=== PATIENT | male | born 1990 | race African-American/Black ===

== ENCOUNTER → 2018-12-31 | Emergency (ER) | payer OTHER ==
[2018-12-31 15:08] VITALS: BP 149/88
--- NOTE | 2018-12-31 15:18 | EDPHY ---
H & P Stated Complaint: locked jaw x 1 hour has history of Time Seen by Provider: 12/31/18 15:17 - Personal History Current Tetanus Diphtheria and Acellular Pertussis (TDAP): Yes - Medical/Surgical History Hx Asthma: No Hx Chronic Respiratory Disease: No Hx Diabetes: No Hx Cardiac Disease: No Hx Renal Disease: No Hx Cirrhosis: No Hx Alcoholism: No Hx HIV/AIDS: No Hx Splenectomy or Spleen Trauma: No Other PMH: TMJ - Social History Smoking Status: Never smoked Constitutional: Initial Vital Signs Temperature (C) 36.7 C 12/31/18 15:04 Heart Rate 73 12/31/18 15:04 Respiratory Rate 16 12/31/18 15:04 Blood Pressure 149/88 H 12/31/18 15:04 O2 Sat (%) 95 12/31/18 15:04 Allergies/Adverse Reactions: No Known Allergies Allergy (Unverified 12/31/18 15:08) Home Medications: Medication Instructions Recorded NK [No Known Home Meds] 12/31/18 Medical Decision Making ED Course/Re-evaluation: CHIEF COMPLAINT: Dislocated jaw HISTORY OF PRESENT ILLNESS: The patient is a 28 y/o male with a history of TMJ and a bilateral dislocated jaw complaining of having a dislocated jaw 1 hour ago. The patient was yawning when he bilaterally dislocated his jaw. In the past he was asked if he wanted dislocation to relocate the jaw, which he declined. No fever, headache, body aches, lightheadedness, chest pain, heart palpitations, shortness of breath, cough, abdominal pain, urinary or bowel complaints, numbness, paresthesias. REVIEW OF SYSTEMS: A comprehensive 10 system review of systems is otherwise negative aside from elements mentioned in the history of present illness and medical decision making. PHYSICAL EXAM: HR, BP, O2 Sat, RR. Temp noted General Appearance: Alert, well hydrated, appropriate, and non-toxic appearing. Head: Atraumatic without scalp tenderness or obvious injury Eyes: Pupils equal, round, reactive to light and accommodation, EOMI, no trauma , no injection. Ears: Clear bilaterally, no perforation, normal landmarks Nose: Atraumatic, no rhinorrhea, clear. Throat: Bilaterally dislocated mandible. There is no erythema or exudates, no lesions, normal tonsils, mucus membranes moist. Neck: Supple, 2+ carotid upstroke, nontender, no lymphadenopathy. Musculoskeletal: Normal active ROM of all extremities, atraumatic. Neurological: Alert, appropriate, and interactive. Skin: No rashes, good turgor, no nodules on palpation. Past medical history: TMJ dislocation Past surgical history: Denies Family history: Denies Social history: Lives in [place], single, employed DIAGNOSTICS/PROCEDURES/CRITICAL CARE TIME: Procedure: Reduction of dislocated TMJ Neurovascular exam intact pre-procedure. The bilateral TMJ was reduced using traction-countertraction. Reassessed post-procedure. Neurovascular status intact. Exam indicated reduction. The procedure was performed by myself, Dr. Haley. DIFFERENTIAL DIAGNOSIS: The differential diagnosis for the patient's jaw injury included but was not limited to dislocation, fracture, ligamentous injury, contusion, muscular strain. MEDICAL DECISION MAKING: The patient is a 28 y/o male with a history of TMJ and a bilateral dislocated jaw presenting with a dislocated jaw 1 hour ago after yawning. In the past he was asked if he wanted dislocation to relocate the jaw, which he declined. On exam he has a bilaterally dislocated jaw. He is declining any medication for the reduction. 1525: I reduced the patient's dislocated TMJ. Return precautions provided; patient is comfortable with this plan. Departure - Departure Disposition: Home, Routine, Self-Care Clinical Impression: Dislocated jaw Qualifiers: Encounter type: initial encounter Qualified Code(s): S03.00XA - Dislocation of jaw, unspecified side, initial encounter Condition: Good Instructions: Mandibular Dislocation (ED) Additional Instructions: 1. Follow-up with your primary doctor within 72 hours. 2. Return to the Emergency Department for fever, chest pain, shortness of breath , increasing pain or other worsening of condition. Referrals: [facility],. [Clinic] - As per Instructions Report Scribed for: Emerson Haley Report Scribed by: Tory Zepeda Date of Report: 12/31/18 Time of Report: 15:21
== END | disposition home or self-care (01) ==
DX: S03.00XA Dislocation of jaw, unspecified side, initial encounter (principal); Y93.89 Activity, other specified